=== PATIENT | female | born 1970 | race Caucasian/White ===

== ENCOUNTER 2018-12-04 15:45 | Emergency (ER) | payer OTHER ==
[~2018-12-04] VITALS: Wt 69.0 kg
--- NOTE | 2018-12-04 15:53 | ERD ---
ER Documentation Chief Complaint Chief Complaint Dizziness HPI The patient is a 48-year-old female, presenting to the ER because of acute dizziness in the ER hallway after visiting her sick father in the ICU because of heart attack. She was therefore brought to the ER for evaluation. She is under a lot of stress, complains of nasal congestion, recently treated for acute sinusitis with antibiotic, complains of left ear pain for the last 2 days, denies facial pain, neck pain, chest pain, c/o transient dyspnea after visiting her father. She denies abdominal pain, vomiting, dysuria, diarrhea, constipation. She does not smoke nor drink, she has irregular menstrual period, elsi menopausal Medical history: Diabetes mellitus diet-controlled, hypertension, panic disorder, anxiety, depression Past surgical history: Tonsillectomy, ectopic ROS All systems reviewed and are negative except as per history of present illness. Allergies Allergies: Coded Allergies: No Known Allergy (Unverified , 12/04/18) Physical Exam Vitals Vital Signs Date Temp Pulse Resp B/P (MAP) Pulse Ox O2 O2 Flow FiO2 Time Delivery Rate 12/04/18 98.0 82 18 155/91 100 Room Air 16:46 (112) 12/04/18 98.2 76 18 199/107 100 15:53 (137) Physical Exam Const: No acute distress. Head: Atraumatic. Eyes: Normal Conjunctiva. ENT: Normal External Ears, Nose and Mouth. Neck: Full range of motion. No meningismus. Resp: Clear to auscultation bilaterally. Cardio: Regular rate and rhythm. Abd: Soft, non distended, normal bowel sounds, non tender. Skin: No petechiae or rashes. Back: No midline or flank tenderness. Ext: No cyanosis, or edema. Neur: Awake and alert. No focal deficit Psych: Anxious Result Diagram: 12/04/18 1617 12/04/18 1617 Results 24 hrs Laboratory Tests Test 12/04/18 15:47 12/04/18 16:17 12/04/18 16:36 12/04/18 16:37 Bedside Glucose 147 mg/dL White Blood Count 7.1 10^3/ul Red Blood Count 4.89 10^6/ul Hemoglobin 13.6 g/dl Hematocrit 41.5 % Mean Corpuscular 84.9 fl Volume Mean Corpuscular 27.8 pg Hemoglobin Mean Corpuscular 32.8 g/dl Hemoglobin Concent Red Cell 12.5 % Distribution Width Platelet Count 382 10^3/UL Mean Platelet 9.1 fl Volume Immature 0.100 % Granulocytes % Neutrophils % 55.2 % Lymphocytes % 37.0 % Monocytes % 7.2 % Eosinophils % 0.1 % Basophils % 0.4 % Nucleated Red Blood 0.0 /100WBC Cells % Immature 0.010 10^3/ul Granulocytes # Neutrophils # 3.9 10^3/ul Lymphocytes # 2.6 10^3/ul Monocytes # 0.5 10^3/ul Eosinophils # 0.0 10^3/ul Basophils # 0.0 10^3/ul Nucleated Red Blood 0.0 10^3/ul Cells # D-Dimer 306.73 ng/ml D-Dimer Comment Sodium Level 139 mmol/L Potassium Level 3.9 mmol/L Chloride Level 101 mmol/L Carbon Dioxide 28 mmol/L Level Anion Gap 10 Blood Urea Nitrogen 11 mg/dl Creatinine 0.53 mg/dl Est Glomerular > 60 mL/min Filtrat Rate mL/min Glucose Level 151 mg/dl Calcium Level 10.0 mg/dl Bedside Urine pH 7.0 (LAB) Bedside Urine Negative Protein (LAB) Bedside Urine Negative Glucose (UA) Bedside Urine Negative Ketones (LAB) Bedside Urine Blood Negative Bedside Urine Negative Nitrite (LAB) Bedside Urine Negative Leukocyte Esterase (L POC Beta HCG, NEGATIVE Qualitative Current Medications Medications Dose Sig/Stefano Start Time Status Last (Trade) Ordered Route PRN Stop Time Admin Dose Reason Admin Alprazolam 0.25 mg ONCE ONCE 12/04/18 DC 12/04/18 (Xanax) PO 16:30 16:58 12/04/18 16:54 Procedures/MDM EKG: Read by emergency physician Rate/Rhythm: Normal Sinus Rhythm 69 beats/min QRS, ST, T-waves: No ST elevation, no T inversion Impression: Normal EKG MEDICAL MAKING DECISION: The patient is a 48-year-old female, presenting with acute anxiety/panic attack, treated with Xanax 0.25 mg p.o. with good response, vital signs improved, is stable for present follow-up The differential diagnoses considered include but are not limited to anxiety at tack, panic attack, stress Departure Diagnosis: Primary Impression: Anxiety Additional Impression: Stress Condition: Good Comments I discussed the findings with the patient. I advised the patient to follow-up with the primary physician in about 1-2 days, sooner if needed and return if any concern. Disclaimer: Inadvertent spelling and grammatical errors are likely due to EHR/dictation software use and do not reflect on the overall quality of patient care. Also, please note that the electronic time recorded on this note does not necessarily reflect the actual time of the patient encounter. NICKO RICHMOND MD Dec 04, 2018 15:53
[2018-12-04] MEDS ORDERED: ALPRAZOLAM 0.25 MG TAB PO ONE (16:30)
[2018-12-04 16:46] VITALS: BP 155/91; PULSE 82; RESP 18
== END 2018-12-04 18:08 | disposition home or self-care (01) ==
LOC: E/R 15:45
DX: F41.9 Anxiety disorder, unspecified (principal); F43.9 Reaction to severe stress, unspecified
CPT/HCPCS: 80048; 81003; 81025; 82962; 85025; 85378; 93005; Z7502; Z7610